=== PATIENT | female | born 1955 | race Caucasian/White ===

== ENCOUNTER 2017-02-21 17:37 | Emergency (ER) | payer BC ==
--- NOTE | 2017-02-21 18:29 | UC ---
Back Pain HPI - HPI Summary HPI Summary: 62 y/o female presents to the urgent care c/o mid back pain while taking a turkey from the oven yesterday. Pt reports pain is spasmodic, sharp with bending and better standing. Pain is 8/10 w/ any radiation. Pt took Ibuprofen 400mg PO this morning to alleviate pain. Pt denies numbness or tingling sensation, saddle anesthesia, fecal or urinary incontinence, urinary symptoms, SOB, chest pain, N/V/D. - History of Current Complaint Stated Complaint: BACK PAIN Time Seen by Provider: 02/21/17 18:28 Hx Obtained From: Patient Hx Last Menstrual Period: menopausal ?: No Onset/Duration: Sudden Onset, Lasting Days - 2 days, Still Present Timing: Constant Severity Initially: Moderate Severity Currently: Moderate Pain Intensity: 8 Pain Scale Used: 0-10 Numeric Back Pain: Is Discrete @ - left side of mid back Character: Spasmodic Aggravating Factor(s): Movement, Lifting, Bending Alleviating Factor(s): Rest, Other - standing Associated Signs And Symptoms: Positive: Negative. Negative: Numbness, Tingling , Abdominal Pain, Flank Pain - Risk Factors AAA Risk Factors: Negative TAD Risk Factors: Negative Cauda Equina Risk Factors: Negative Epidural Abscess Risk Factors: Negative - Allergies/Home Medications Allergies/Adverse Reactions: Allergies Allergy/AdvReac Type Severity Reaction Status Date / Time Amoxicillin AdvReac Diarrhea Verified 02/21/17 18:35 PMH/Surg Hx/FS Hx/Imm Hx Previously Healthy: Yes Other Endocrine History: Thyroid nodule Other Cancer History: Basal cell carcinoma - Surgical History Surgical History: Yes Surgery Procedure, Year, and Place: partial thyroid removed 1977 - Family History Known Family History: Positive: Cardiac Disease, Respiratory Disease - asthma - Social History Occupation: Employed Full-time Lives: With Family Alcohol Use: Weekly Substance Use Type: None Smoking Status (MU): Former Smoker Type: Cigarettes Amount Used/How Often: 1/2 PPD Length of Time of Smoking/Using Tobacco: 11 Years Have You Smoked in the Last Year: No - Immunization History Most Recent Influenza Vaccination: Not the 2016/2016 Season Review of Systems Constitutional: Negative Skin: Negative Eyes: Negative ENT: Negative Respiratory: Negative Cardiovascular: Negative Gastrointestinal: Negative Genitourinary: Negative Motor: Negative Neurovascular: Negative Musculoskeletal: Other: - mid back pain with back spasm Neurological: Negative Psychological: Negative Is Patient Immunocompromised?: No All Other Systems Reviewed And Are Negative: Yes Physical Exam Triage Information Reviewed: Yes - Additional Comments General: Patient is a well developed female without any distress that is laying comfortably in the examining table w/o any apparent distress Skin: [place], warm, dry HEAD AND FACE: No signs of trauma. EYES: PERRLA, EOMI x 2. EARS: Hearing grossly intact. MOUTH: Oropharynx within normal limits. NECK: Supple, trachea is midline, no adenopathy, no JVD. CHEST: Symmetric, no tenderness at palpation LUNGS: CTA bilaterally, no rales, rhonchi or wheezing CVS: RRR, no murmur, rub, or gallop ABDOMEN: soft and Nontender without masses, no guarding or rebound. Bowel sounds are active. No Hepato-splenomegaly. No signs of inguinal hernias. BACK: Patient walked into the urgent care room with symmetric ambulation, No signs of limping, antalgic, able to bear weight. No signs of trauma, Poin tenderness at the level of the T-11-12 and left side paraspinal muscle tenderness and spasm. No masses palpated. No CVAT, no flank ecchymosis . No sacroiliac notch tenderness, No saddle anesthesia ROM: flexion/ extension/ lateral bending and rotation limited due to pain. Leg Raise test unable to performe due to pain .Patellar reflexes: brisk, symmetric Muscle strength lower extremities. Dorsiflexion/ plantar flexion of ankles. Heel / toe walk.Lower extremities: Femoral, popliteal, posterior tibial, and dorsalis pedis pulses with in normal, Nuerological: WNL Psychological: WNL Skin: warm and dry Back Pain Course/Dx - Course Course Of Treatment: 62 y/o female presents to the urgent care c/o mid back pain while taking a turkey from the oven yesterday. Pt reports pain is spasmodic , sharp with bending and better standing. Pain is 8/10 w/ any radiation. Pt took Ibuprofen 400mg PO this morning to alleviate pain. Pt denies numbness or tingling sensation, saddle anesthesia, fecal or urinary incontinence, urinary symptoms, SOB, chest pain, N/V/D. Hx obtained. Pt with left side mid back muscle spasm on examination. Pt Rx Naproxen PO and Flexeril PO to allevviate muscle spasm. Patient was instructed to the f/u wit orthopedic in 1 week if symptoms do not improve or worsen. Patient understands and agrees. Patient is able to ambulate freely w/o aid or limp. Plan of care was discussed with the patient and patient understands and agrees. All questions were answered at patient satisfaction. Pt left clinic hemodynamically stable. - Differential Dx/Diagnosis Differential Diagnosis/HQI/PQRI: Arthritis, Herniated Disc, Renal Colic, Strain , Sprain, Other - Back spasm, Degenerative disc disease, UTI Provider Diagnoses: 1- Mid back pain. 2- Left side mid back spasm Discharge - Discharge Plan Condition: Stable Disposition: HOME Prescriptions: Cyclobenzaprine TAB* [Flexeril 10 MG TAB*] 10 mg PO TID PRN #15 tab PRN Reason: Spasms - Back Naproxen [Naproxen 500 mg] 500 mg PO Q8H #30 tab Patient Education Materials: Muscle Spasm (ED), Back Pain (ED) Referrals: Shamika Wynn MD [Medical Doctor] - 1 Week Catalino Cuenca MD [Primary Care Provider] - 1 Week Additional Instructions: 1- Please take Naproxen PO as directed after meals for pain. 2- Take Flexeril PO as directed for muscle spasm. Please do not drive while taking the medication. 3- Wear a back support. Avoid strenuous exercise of heavy lifting. 4- Please follow up with Orthopedic Dr or your PCP in 1 week if not improvement of symptoms, for further management.
== END 2017-02-21 19:03 | disposition home or self-care (01) ==
LOC: UCCORT 17:37
DX: M54.9 Dorsalgia, unspecified (principal); M62.830 Muscle spasm of back; E04.1 Nontoxic single thyroid nodule; Z85.828 Personal history of other malignant neoplasm of skin; Z88.1 Allergy status to other antibiotic agents; Z87.891 Personal history of nicotine dependence
CPT/HCPCS: 99212; G0463